=== PATIENT | female | born 1965 | race Caucasian/White ===

== ENCOUNTER 2023-06-05 23:05 | Emergency (ER) | payer MEDICAID ==
[~2023-06-05] VITALS: Ht 154.9 cm; Wt 72.6 kg
[2023-06-05] MEDS ORDERED: HYDROCODONE/APAP 5/325MG TABLET ONE (23:25)
[2023-06-05] MEDS ORDERED: HYDROCODONE/APAP 5/325MG TABLET PO ONE (23:30)
[2023-06-06] MEDS ORDERED: KETOROLAC TROMETHAMINE INJ 60 MG/2 ML VIAL IM ONE ×2 (00:47→01:00)
[2023-06-06] MEDS ORDERED: NABU-141 PO (01:39)
[2023-06-06 01:49] VITALS: BP 129/65; TEMP 98.5; O2SAT 95
== END 2023-06-06 01:49 | disposition home or self-care (01) ==
LOC: ER 23:08
DX: M25.562 Pain in left knee (principal); I10 Essential (primary) hypertension
CPT/HCPCS: 99285; 93971; 73564; 96372; J1885